=== PATIENT | male | born 1980 | race Caucasian/White ===

== ENCOUNTER 2017-10-25 05:48 | Inpatient (IN) | payer MEDICAID ==
[2017-10-25] MEDS: SOD CHLORIDE 0.9% 1,000 ML IV ×4 (07:15→23:21)
[2017-10-25 07:25] LABS: ADD MAN DIFF? NO
[2017-10-25 07:32] LABS: WHITE BLOOD COUNT 6.2 10^3/ul (4.8-10.8)
[2017-10-25 07:32] LABS: BASOPHIL # 0.1 10^3/ul (0.0-0.1); BASOPHILS % 0.8 % (0.0-2.0); EOSINOPHILS # 0.4 10^3/ul (0.0-0.5); EOSINOPHILS % 5.8 % (0.0-7.0); HEMATOCRIT 42.6 % (42.0-52.0); HEMOGLOBIN 14.2 g/dl (14.0-18.0); LYMPHOCYTES # 1.1 10^3/ul (0.8-2.9); LYMPHOCYTES % 17.7 % (15.0-51.0); MEAN CORPUSCULAR HEMOGLOBIN 28.3 pg (29.0-33.0); MEAN CORPUSCULAR HGB CONC 33.3 g/dl (32.0-37.0); MEAN PLATELET VOLUME 9.3 fl (7.4-10.4); MONOCYTE # 0.3 10^3/ul (0.3-0.9); MONOCYTES % 5.3 % (0.0-11.0); NEUTROPHIL # 4.4 10^3/ul (1.6-7.5); NEUTROPHILS % 70.1 % (39.0-77.0); PLATELET COUNT 232 10^3/UL (140-415); RED BLOOD COUNT 5.01 10^6/ul (4.70-6.10); RED CELL DISTRIBUTION WIDTH 12.8 % (11.5-14.5)
[2017-10-25] MEDS: HYDROmorphONE 0.5 MG/0.5 ML SYG IV (07:58)
[2017-10-25] MEDS: ONDANSETRON 4 MG INJ IV (07:58)
[2017-10-25 08:00] LABS: ALANINE AMINOTRANSFERASE 69 IU/L (13-69); ALBUMIN 4.5 g/dl (3.3-4.9); ALBUMIN/GLOBULIN RATIO 1.15; ALKALINE PHOSPHATASE 72 IU/L (42-121); ANION GAP 17 (8-16); ASPARTATE AMINO TRANSFERASE 38 IU/L (15-46); BILIRUBIN,INDIRECT 0.4 mg/dl (0-1.1); BILIRUBIN,TOTAL 0.4 mg/dl (0.2-1.3); BLOOD UREA NITROGEN 20 mg/dl (7-20); CALCIUM 8.9 mg/dl (8.4-10.2); CARBON DIOXIDE 27 mmol/L (21-31); CHLORIDE 105 mmol/L (97-110); CREATININE 1.02 mg/dl (0.61-1.24); GLUCOSE 119 mg/dl (70-220); LIPASE 84 U/L (23-300); POTASSIUM 4.2 mmol/L (3.5-5.1); SODIUM 145 mmol/L (135-144); TOTAL PROTEIN 8.4 g/dl (6.1-8.1)
[2017-10-25 08:38] LABS: URINE PH (Dip) POC 6.5 (5.0-8.5)
[2017-10-25 08:38] LABS: URINE BLOOD (Dip) POC 2+ (NEGATIVE); URINE GLUCOSE (Dip) POC Negative (NEGATIVE); URINE KETONES (Dip) POC Negative (NEGATIVE); URINE LEUKOCYTE EST (Dip) POC Negative (NEGATIVE); URINE NITRITE (Dip) POC Negative (NEGATIVE); URINE TOTAL PROTEIN POC Negative (NEGATIVE)
[2017-10-25 08:54] LABS: ADD UMIC YES; UR ASCORBIC ACID 40 mg/dL (NEGATIVE); UR BILIRUBIN (Dip) NEGATIVE (NEGATIVE); UR BLOOD (Dip) 1+ mg/dL (NEGATIVE); UR CLARITY CLEAR (CLEAR); UR COLOR YELLOW (YELLOW); UR GLUCOSE (Dip) NEGATIVE (NEGATIVE); UR KETONES (Dip) NEGATIVE (NEGATIVE); UR LEUKOCYTE ESTERASE (Dip) NEGATIVE Leu/ul (NEGATIVE); UR NITRITE (Dip) NEGATIVE (NEGATIVE); UR RBC 4 /HPF (0-5); UR SPECIFIC GRAVITY (Dip) 1.017 (1.003-1.030); UR TOTAL PROTEIN (Dip) NEGATIVE (NEGATIVE); UR UROBILINOGEN (Dip) NEGATIVE (NEGATIVE); UR WBC 1 /HPF (0-5)
[2017-10-25] MEDS ORDERED: ACETAMINOPHEN 325 MG TAB PO ×2 (10:30→13:00)
[2017-10-25] MEDS ORDERED: ONDANSETRON 4 MG INJ IV ×2 (10:30→13:00)
[2017-10-25] MEDS ORDERED: NACL 0.9% 3 ML SYG IV (13:00)
[2017-10-25] MEDS: CIPROFLOXACIN 400MG/D5W 200 ML IVPB ×2 (16:36→21:41)
[2017-10-25] MEDS: morphine 2 MG INJ IV ×2 (19:10→23:21)
[2017-10-25] MEDS: FAMOTIDINE 20 MG TAB PO (20:55)
[2017-10-25] MEDS: TAMSULOSIN (SR) 0.4 MG CAP PO (20:55)
[2017-10-26] MEDS: morphine 2 MG INJ IV (03:40)
[2017-10-26 05:06] LABS: ADD MAN DIFF? NO
[2017-10-26 05:14] LABS: BASOPHILS % 0.6 % (0.0-2.0); EOSINOPHILS # 0.4 10^3/ul (0.0-0.5); EOSINOPHILS % 5.5 % (0.0-7.0); HEMOGLOBIN 13.1 g/dl (14.0-18.0); LYMPHOCYTES % 15.1 % (15.0-51.0); MEAN CORPUSCULAR HEMOGLOBIN 27.9 pg (29.0-33.0); MEAN CORPUSCULAR HGB CONC 32.8 g/dl (32.0-37.0); MEAN CORPUSCULAR VOLUME 85.3 fl (82.0-101.0); MEAN PLATELET VOLUME 9.2 fl (7.4-10.4); MONOCYTE # 0.5 10^3/ul (0.3-0.9); MONOCYTES % 7.4 % (0.0-11.0); NEUTROPHIL # 4.8 10^3/ul (1.6-7.5); NEUTROPHILS % 71.1 % (39.0-77.0); PLATELET COUNT 219 10^3/UL (140-415); RED BLOOD COUNT 4.69 10^6/ul (4.70-6.10); RED CELL DISTRIBUTION WIDTH 13.1 % (11.5-14.5)
[2017-10-26 05:14] LABS: WHITE BLOOD COUNT 6.8 10^3/ul (4.8-10.8)
[2017-10-26 05:46] LABS: ALANINE AMINOTRANSFERASE 50 IU/L (13-69); ALBUMIN 3.9 g/dl (3.3-4.9); ALKALINE PHOSPHATASE 57 IU/L (42-121); ANION GAP 16 (8-16); ASPARTATE AMINO TRANSFERASE 30 IU/L (15-46); BILIRUBIN,INDIRECT 0.2 mg/dl (0-1.1); BILIRUBIN,TOTAL 0.2 mg/dl (0.2-1.3); BLOOD UREA NITROGEN 14 mg/dl (7-20); CALCIUM 8.1 mg/dl (8.4-10.2); CARBON DIOXIDE 24 mmol/L (21-31); CHLORIDE 108 mmol/L (97-110); CHOL/HDL RATIO 6.8 RATIO; CHOLESTEROL 199 mg/dl (100-200); CREATININE 0.95 mg/dl (0.61-1.24); GLUCOSE 115 mg/dl (70-220); HDL CHOLESTEROL 29 mg/dl (28-63); LDL CHOLESTEROL,CALCULATED 111 mg/dl; PHOSPHORUS 4.1 mg/dl (2.5-4.9); POTASSIUM 3.8 mmol/L (3.5-5.1); SODIUM 144 mmol/L (135-144); TOTAL PROTEIN 6.9 g/dl (6.1-8.1); TRIGLYCERIDES 294 mg/dl (0-149)
[2017-10-26 05:50] LABS: HEMOGLOBIN A1C 5.4 % (0-5.9)
[2017-10-26] MEDS: SOD CHLORIDE 0.9% 1,000 ML IV (07:09)
[2017-10-26] MEDS: CIPROFLOXACIN 400MG/D5W 200 ML IVPB (08:03)
[2017-10-26] MEDS: FAMOTIDINE 20 MG TAB PO (08:03)
== END 2017-10-26 11:51 | disposition home or self-care (01) | DRG 694 ==
LOC: FTE 05:48 → MS1 10:20
DX: N13.2 Hydronephrosis with renal and ureteral calculous obstruction (principal); Z87.891 Personal history of nicotine dependence
CPT/HCPCS: 36415; 74018; 74176; 76870; 80053; 80061; 81001; 81003; 83036; 83690; 83735; 84100; 84443; 85025; 87040; 87086; 96374; 96375; 99285-25